=== PATIENT | male | born 1960 | race Caucasian/White ===

== ENCOUNTER 2017-11-02 11:12 | Emergency (ER) | payer OTHER ==
[2017-11-02 11:31] VITALS: TEMP 97.4; O2SAT 97
--- NOTE | 2017-11-02 12:31 | C.PDOC ---
History Of Present Illness 57 y/o male c/o pain and swelling in right axilla for 8 days that is getting worse, no fever or chills., no hx dm. pt has had similar problem in left axilla in past. Time Seen by Provider: 11/02/17 12:14 Chief Complaint (Nursing): Abnormal Skin Integrity History Per: Patient History/Exam Limitations: no limitations Onset/Duration Of Symptoms: Days (8) Current Symptoms Are (Timing): Worse Location Of Injury: Right: Arm (axilla) Quality Of Symptoms: Painful, Swollen. denies: Draining Severity: Moderate Past Medical History Reviewed: Historical Data, Nursing Documentation, Vital Signs Vital Signs: Last Vital Signs Temp 97.4 F L 11/02/17 11:25 Pulse 88 11/02/17 12:52 Resp 18 11/02/17 12:52 BP 125/83 11/02/17 12:52 Pulse Ox 97 11/04/17 18:57 - Medical History PMH: No Chronic Diseases Family History: States: Unknown Family Hx - Social History Hx Tobacco Use: No Hx Alcohol Use: No Hx Substance Use: No - Immunization History Hx Tetanus Toxoid Vaccination: No Hx Influenza Vaccination: No Hx Pneumococcal Vaccination: No Review Of Systems Constitutional: Negative for: Fever, Chills Musculoskeletal: Positive for: Arm Pain (right axilla) Skin: Positive for: Other (early abscess) Neurological: Negative for: Weakness, Numbness Physical Exam - Physical Exam Appears: Non-toxic, No Acute Distress Skin: Warm, Dry, Other (4-5 cm x 1 cm approx area of induration, tenderness and mild warmth, no fluctuance. In proximal/medial axilla, there is 0.5cm x 1 cm tender indurated non fluctuant area, ) Neurological/Psych: Oriented x3, Normal Speech, Normal Cognition ED Course And Treatment O2 Sat by Pulse Oximetry: 97 Medical Decision Making Medical Decision Making: pt with early abscess in right axilla, indurated, tender, not fluctuant; will start on keflex and bactrim and f/u surgery. Disposition Counseled Patient/Family Regarding: Diagnosis, Need For Followup, Rx Given - Disposition Referrals: Scott Farmer MD [Staff Provider] - Disposition: HOME/ ROUTINE Disposition Time: 12:43 Condition: STABLE Additional Instructions: Warm compresses to right underarm several times a day. Take both antibiotics as prescribed. Take ibuprofen for pain. Follow up with Dr Farmer (surgeon) for further evaluation of swelling to right underarm. Return to ER for any worse symptoms, drainage from underarm, fever. Prescriptions: Cephalexin [cephalexin] 500 mg PO Q6 #28 cap Ibuprofen [Motrin] 600 mg PO TID #30 tab Sulfamethoxazole/Trimethoprim [Bactrim Ds Tablet] 1 each PO BID #14 tablet Instructions: Abscess (ED) Forms: [facility] ([place]), General Discharge Instructions - Clinical Impression Clinical Impression: Abscess of right axilla
[2017-11-02 12:53] VITALS: BP 125/83; PULSE 88; RESP 18
== END 2017-11-02 12:53 | disposition home or self-care (01) ==
LOC: C.ER 11:12
DX: L02.411 Cutaneous abscess of right axilla (principal)